=== PATIENT | female | born 1985 | race Caucasian/White ===

== ENCOUNTER → 2016-12-10 | Outpatient (CLI) | payer MEDICARE ==
--- NOTE | 2016-12-10 11:27 | RAD ---
Indication: Epigastric pain with nausea and vomiting area The patient was administered 2 mCi of technetium 99m sulfur colloid labeled to the test meal and imaging over the abdomen was performed. Time of half emptying is calculated to be 210 minutes. Normal values are typically 30 to 90 minutes. Impression: Delayed gastric emptying.
== END | disposition home or self-care (01) ==
LOC: NM 07:53
PROVIDERS: ATTEND Internal Medicine Gastroenterology
DX: R10.13 Epigastric pain (principal); R11.2 Nausea with vomiting, unspecified; F17.200 Nicotine dependence, unspecified, uncomplicated; Z79.84 Long term (current) use of oral hypoglycemic drugs
CPT/HCPCS: 78264; A9541

== ENCOUNTER 2017-04-25 15:12 | Emergency (ER) | payer MEDICARE ==
[~2017-04-25] VITALS: Ht 162.6 cm; Wt 81.6 kg
[2017-04-25 15:30] VITALS: BP 115/82
[2017-04-25] MEDS ORDERED: DIPHTH,PERTUSS(ACELL),TET TOX 0.5 ML DISP.SYRIN. VAX IM ONE (15:45)
[2017-04-25] MEDS ORDERED: HYDROcodone/APAP 5/325MG 1 TAB TABLET PO ONE (15:45)
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
--- NOTE | 2017-04-25 15:55 | RAD ---
Indication wrist pain associated with an injury. AP oblique and lateral views of the right wrist were obtained. Only seen on the lateral view is possible slight irregularity of the dorsal aspect of the distal radius. This is likely artifactual but a subtle fracture at this level is not entirely excluded. Soft tissue swelling is noted.
[2017-04-25] MEDS ORDERED: HYDR-971 PO (16:04)
== END 2017-04-25 16:10 | disposition home or self-care (01) ==
LOC: ER 15:12
DX: S52.124A Nondisplaced fracture of head of right radius, initial encounter for closed fracture (principal); S60.414A Abrasion of right ring finger, initial encounter; M79.7 Fibromyalgia; E11.43 Type 2 diabetes mellitus with diabetic autonomic (poly)neuropathy; K31.84 Gastroparesis; Z88.1 Allergy status to other antibiotic agents; Y08.89XA Assault by other specified means, initial encounter; Y93.89 Activity, other specified; Y92.89 Other specified places as the place of occurrence of the external cause; Y99.8 Other external cause status
CPT/HCPCS: 29125; 73110; 90471; 90715; 99284-25

== ENCOUNTER 2017-09-05 00:34 | Emergency (ER) | payer MEDICARE ==
[2017-09-05] MEDS: IV NORMAL SALINE 1000ML BAG 1,000 ML IV ×2 (01:00)
[2017-09-05 01:08] LABS: URINE HCG POC HCG NEGATIVE (Negative)
[2017-09-05 01:10] LABS: BILIRUBIN,URINE NEGATIVE (NEG); CLARITY,URINE CLEAR; COLOR,URINE YELLOW; GLUCOSE,URINE NEGATIVE (NEG); NITRITE,URINE NEGATIVE (NEG); PH,URINE 8.5; PROTEIN,URINE 100 mg/dL (NEG-TRACE); UROBILINOGEN,URINE 0.2 mg/dL (0.2 mg/dL)
[2017-09-05] MEDS ORDERED: ONDANSETRON PF 4 MG/2 ML VIAL. ×2 (01:10)
[2017-09-05] MEDS: ONDANSETRON PF 4 MG/2 ML VIAL. IV ×2 (01:15)
[2017-09-05 01:16] LABS: BASO % 0 % (0-3); EOS % 1 % (0-3); HEMATOCRIT 38.1 % (36.0-47.0); HEMOGLOBIN 12.8 g/dL (12.0-15.5); LYMPH # 0.7 x10^3/uL (1.0-4.8); LYMPH % 10 % (24-48); MEAN CORPUSCULAR HEMOGLOBIN 30 pg (25-35); MEAN CORPUSCULAR HGB CONC 34 g/dL (31-37); MEAN CORPUSCULAR VOLUME 88 fL (79-100); MONO # 0.3 x10^3/uL (0.0-1.1); MONO % 4 % (0-9); NEUT % 85 % (31-73); PLATELET COUNT 345 x10^3/uL (140-400); RED BLOOD COUNT 4.33 x10^6/uL (3.50-5.40); RED CELL DISTRIBUTION WIDTH 14.8 % (11.5-14.5)
[2017-09-05 01:17] LABS: BARBITURATES NEG (NEG); BENZODIAZEPINES NEG (NEG); CANNABINOIDS POS (NEG); COCAINE NEG (NEG); METHADONE NEG (NEG); OPIATES NEG (NEG); PHENCYCLIDINE NEG (NEG)
[2017-09-05 01:18] LABS: ADD MAN DIFF? YES; BACTERIA,URINE FEW /HPF (0-FEW); SQUAMOUS EPITHELIAL CELL,UR MANY /LPF
[2017-09-05 01:19] LABS: AMPHETAMINE/METHAMPHETAMINE NEG (NEG); ETHANOL, URINE NEG (NEG)
[2017-09-05 01:25] LABS: ANION GAP 10 (6-14); BLOOD UREA NITROGEN 16 mg/dL (7-20); BUN/CREATININE RATIO 20 (6-20); CALCIUM 9.3 mg/dL (8.5-10.1); CARBON DIOXIDE 26 mmol/L (21-32); CHLORIDE 99 mmol/L (98-107); CREATININE 0.8 mg/dL (0.6-1.0); GFR 82.6; GLUCOSE 130 mg/dL (70-99); POTASSIUM 3.8 mmol/L (3.5-5.1); SODIUM 135 mmol/L (136-145)
[2017-09-05 01:31] LABS: ALBUMIN/GLOBULIN RATIO 0.9 (1.0-1.7); ALK PHOS 59 U/L (46-116); ALT (SGPT) 16 U/L (14-59); AST (SGOT) 19 U/L (15-37); LIPASE 176 U/L (73-393); TOTAL BILIRUBIN 0.5 mg/dL (0.2-1.0); TOTAL PROTEIN 8.3 g/dL (6.4-8.2)
[2017-09-05 01:49] LABS: % BANDS 2 % (0-9); % EOS 1 % (0-5); % LYMPHS 6 % (24-48); % MONOS 3 % (0-10); % SEGS 88 % (35-66); PLT ESTIMATE ADEQUATE (ADEQUATE)
[2017-09-05] MEDS ORDERED: KETOROLAC 15 MG/ML VIAL. ×2 (02:08)
[2017-09-05] MEDS: KETOROLAC 15 MG/ML VIAL. IV ×2 (02:11)
[2017-09-05] MEDS: BENZONATATE 100 MG CAPSULE. PO ×2 (02:11)
== END 2017-09-05 02:33 | disposition home or self-care (01) ==
LOC: ER 00:34
DX: R10.84 Generalized abdominal pain (principal); Z71.51 Drug abuse counseling and surveillance of drug abuser; F41.9 Anxiety disorder, unspecified; F32.9 Major depressive disorder, single episode, unspecified; E11.43 Type 2 diabetes mellitus with diabetic autonomic (poly)neuropathy; K31.84 Gastroparesis; F12.10 Cannabis abuse, uncomplicated; Z88.1 Allergy status to other antibiotic agents
CPT/HCPCS: 36415; 74176; 80053; 80307; 81001; 81025; 83690; 85007; 85025; 96361; 96374; 96375; 99285-25; J1885; J2405; J7030